=== PATIENT | male | born 1950 | race American Indian/Alaskan Native ===

== ENCOUNTER 2020-02-11 09:16 | Outpatient (CLI) | payer MEDICARE ==
--- NOTE | 2020-02-11 10:24 | XRay Report ---
CLINICAL DATA: LUMBAR BACK PAIN WITH RADICULOPATHY AFFECTING RIGHT LOWER EXTREMI TECHNICAL DATA: AP, lateral, both obliques in the spine L5-S1 view obtained. FINDINGS: Bones are osteopenic. Vertebral plasty L1 L3 noted. Also vertebral plasty T11. Mild intervertebral di sc space narrowing L4-5. Pedicles and spinous processes are normal in alignment. SI joints sacrum is normal IMPRESSION: No acute abnormality identified Signer Name: Guanako Apodaca MD Signed: 02/11/2020 10:19 AM Workstation Name: [id number]
== END 2020-02-11 09:17 | disposition home or self-care (01) ==
LOC: SPVIMAG 09:16
PROVIDERS: ATTEND Internal Medicine
DX: M48.061 Spinal stenosis, lumbar region without neurogenic claudication (principal); M54.16 Radiculopathy, lumbar region
CPT/HCPCS: 72110